=== PATIENT | male | born 1970 | race Two or more races ===

== ENCOUNTER 2024-02-01 16:57 | Emergency (ER) | payer OTHER ==
[~2024-02-01] VITALS: Ht 165.1 cm; Wt 68.0 kg
[2024-02-01] MEDS ORDERED: MAG HYDROX/AL HYDROX/SIMETH 30 ML UDC ONE (17:15)
[2024-02-01] MEDS ORDERED: LIDOCAINE VISCOUS 2% UD 15 ML UDC ONE (17:15)
[2024-02-01] MEDS ORDERED: DICYCLOMINE HCL 10 MG CAPSULE PO ONE (17:15)
[2024-02-01] MEDS ORDERED: FAMOTIDINE/PF INJ 20 MG/2 ML VIAL IV ONE (17:15)
[2024-02-01] MEDS ORDERED: DICYCLOMINE HCL INJ 20 MG/2 ML AMPUL IM ONE (17:18)
[2024-02-01] MEDS: MAG HYDROX/AL HYDROX/SIMETH 30 ML UDC PO ONE (17:30)
[2024-02-01] MEDS: FAMOTIDINE/PF INJ 20 MG/2 ML VIAL IV ONE (17:30)
[2024-02-01] MEDS: IV NS 0.9% 500 ML BAG IV ONE (17:30)
[2024-02-01] MEDS: LIDOCAINE VISCOUS 2% UD 15 ML UDC MM ONE (17:30)
[2024-02-01] MEDS: DICYCLOMINE HCL INJ 20 MG/2 ML AMPUL IM ONE (17:35)
[2024-02-01 17:48] LABS: BASOPHILS # (AUTO) 0.1 K/uL (0.0-0.2); BASOPHILS % (AUTO) 0.7 % (0.0-2.0); EOSINOPHILS # (AUTO) 0.1 K/uL (0.0-0.7); EOSINOPHILS % (AUTO) 1.1 % (0.0-6.0); HEMATOCRIT 43 % (39-51); LYMPHOCYTES # (AUTO) 1.3 K/uL (0.8-4.8); LYMPHOCYTES % (AUTO) 14.7 % (20.0-44.0); MEAN CORPUSCULAR HEMOGLOBIN 28 PG (26.0-33.0); MEAN CORPUSCULAR HGB CONC 33 g/dl (31.0-36.0); MEAN CORPUSCULAR VOLUME 87 fL (80-96); MONOCYTES # (AUTO) 0.4 K/uL (0.1-1.30); MONOCYTES % (AUTO) 4.7 % (2.0-12.0); NEUTROPHILS # (AUTO) 6.9 K/uL (1.8-8.9); NEUTROPHILS % (AUTO) 78.8 % (43.0-81.0); PLATELET COUNT (AUTO) 229 K/uL (150-450); RED BLOOD CELL COUNT(AUTO) 4.99 MIL/uL (4.5-6.0); RED CELL DISTRIBUTION WIDTH 13.9 % (11.5-15.0); WHITE BLOOD COUNT (AUTO) 8.8 K/uL (4.3-11.0)
[2024-02-01] MEDS ORDERED: LISI-768 PO (18:47)
[2024-02-01] MEDS ORDERED: FAMO20TA8 PO (18:47)
[2024-02-01 19:33] LABS: POTASSIUM 4.8 mmol/L (3.5-5.1)
[2024-02-01 19:34] LABS: CALCIUM, SERUM 9.6 mg/dL (8.5-10.1)
[2024-02-01 19:35] LABS: BILIRUBIN,DIRECT 0.2 mg/dL (0.0-0.2); BILIRUBIN,TOTAL 0.6 mg/dL (0.2-1.0)
[2024-02-01 19:36] LABS: ALBUMIN 3.1 g/dL (3.4-5.0)
[2024-02-01 20:28] VITALS: BP 121/73; TEMP 98.1; O2SAT 98
== END 2024-02-01 20:29 | disposition home or self-care (01) ==
LOC: ER 17:06
DX: K80.50 Calculus of bile duct without cholangitis or cholecystitis without obstruction (principal); R10.13 Epigastric pain; K21.9 Gastro-esophageal reflux disease without esophagitis; Z79.899 Other long term (current) drug therapy; Z88.0 Allergy status to penicillin
CPT/HCPCS: 99285; 74176; 96374; 76705; 93005; 85025; 80048; 83690; 80076; 36415; 96372; J3490; J7040; J0500